=== PATIENT | female | born 1955 | race African-American/Black ===

== ENCOUNTER 2020-11-27 14:23 | Emergency (ER) | payer MEDICARE, MEDICAID, SELFPAY ==
[2020-11-27] VITALS (25 sets, daily range): BP systolic 152–204; BP diastolic 81–94; PULSE 72–89; RESP 15–18; TEMP 37.1; O2SAT 94–100
[2020-11-27 16:52] LABS: Basophils Percent Auto 0.4 % (0.2-1.2); Eosinophils Absolute Auto 0.1 K/mm3 (0-0.3); Eosinophils Percent Auto 0.8 % (0-4.4); Hematocrit 39.9 % (37.0-47.0); Hemoglobin 12.9 g/dL (12.0-15.0); Immature Granulocyte Absolute 0.04 K/mm3 (0.00-0.031); Immature Granulocyte Percent A 0.5 % (0-0.5); Lymphocytes Absolute Auto 1.69 K/mm3 (0.9-3.2); Lymphocytes Percent Auto 19.8 % (18.3-44.2); Mean Corpuscular HGB Conc 32.3 g/dl (32-36); Mean Corpuscular Volume 83.5 fl (80-100); Mean Platelet Volume 9.5 fl (7.4-10.4); Monocytes Absolute Auto 0.7 K/mm3 (0.1-0.6); Monocytes Percent Auto 8.1 % (2.6-8.5); Neutrophils Percent Auto 70.4 % (45.5-73.1); Platelet Count Result 363 k/mm3 (150-375); Red Blood Count 4.78 M/mm3 (4.2-5.4); Red Cell Distribution Width 16.9 % (11.5-14.5); White Blood Count 8.5 K/mm3 (4.5-10.0)
--- NOTE | 2020-11-27 17:07 | PC.NURSE ---
verbal order from hanna lea for regular diet for pt.
--- NOTE | 2020-11-27 17:08 | PC.NURSE ---
Dinner tray requested per provider order and pt request.
--- NOTE | 2020-11-27 17:21 | ED.GENADULT ---
HPI - General Adult General Chief complaint: Unspecified <Loraine Crawley MD - Last Filed: 11/30/20 08:27> Stated complaint: WEAKNESS <Loraine Crawley MD - Last Filed: 11/30/20 08:27> Time Seen by Provider: 11/27/20 15:26 <Loraine Crawley MD - Last Filed: 11/30/20 08:27> Source: patient <Loraine Crawley MD - Last Filed: 11/30/20 08:27> History of Present Illness HPI narrative: Patient is a 65 y/o female complaining of weakness. [facility] and she signed herself out today. She was going to go home, but she was not able to get off the stretcher when EMS brought her home. She has some chronic knee pain due to arthritis. She has no acute complaint. <Loraine Crawley MD - Last Filed: 11/30/20 08:27> Related Data Home medications: Home Medications Medication Instructions Recorded Confirmed aspirin 81 mg PO DAILY 11/28/20 11/28/20 atorvastatin 10 mg PO HS 11/28/20 11/28/20 baclofen 20 mg PO BID 11/28/20 11/28/20 hydrocodone-acetaminophen 1 tablet PO QID PRN 11/28/20 11/28/20 insulin asp prt-insulin aspart 45 unit SUBCUT QPM 11/28/20 11/28/20 [Novolog Mix 70-30 U-100 Insuln] insulin asp prt-insulin aspart 30 unit SUBCUT QAM 11/28/20 11/28/20 [Novolog Mix 70-30FlexPen U-100] lidocaine See Rx Instructions .ROUTE .COMPLEX 11/28/20 11/28/20 lisinopril 40 mg PO DAILY 11/28/20 11/28/20 loperamide [Imodium] See Rx Instructions .ROUTE 11/28/20 11/28/20 .COMPLEX PRN MDD 8 mg <Loraine Crawley MD - Last Filed: 11/30/20 08:27> Allergies/adverse reactions: Allergies Allergy/AdvReac Type Severity Reaction Status Date / Time broccoli Allergy Severe Hives Verified 11/28/20 13:55 chocolate flavor Allergy Severe Anaphylactic Verified 11/28/20 13:55 Shock shrimp Allergy Severe Hives Verified 11/28/20 13:55 Sulfa (Sulfonamide Allergy Severe Anaphylactic Verified 11/28/20 13:55 Antibiotics) Shock tetracycline Allergy Severe Nausea and Verified 11/28/20 13:55 Vomiting EGGS Allergy Severe Cramping Uncoded 11/28/20 13:55 of the Muscles <Loraine Crawley MD - Last Filed: 11/30/20 08:27> Review of Systems Constitutional: Constitutional: Denies chills, Denies fever(s), Denies headache(s) and Reports weakness <Loraine Crawley MD - Last Filed: 11/30/20 08:27> Eyes: Eyes: Denies blurry vision <Loraine Crawley MD - Last Filed: 11/30/20 08:27> ENT: Denies headache(s) and Denies neck pain <Loraine Crawley MD - Last Filed: 11/30/20 08:27> Cardiovascular: Cardiovascular: Denies chest pain and Denies dyspnea <Loraine Crawley MD - Last Filed: 11/30/20 08:27> Respiratory: Respiratory: Denies cough and Denies dyspnea <Loraine Crawley MD - Last Filed: 11/30/20 08:27> Gastrointestinal: Gastrointestinal: Denies abdominal pain, Denies diarrhea, Denies nausea and Denies vomiting <Loraine Crawley MD - Last Filed: 11/30/20 08:27> Genitourinary: Genitourinary: Denies hematuria and Denies dysuria <Loraine Crawley MD - Last Filed: 11/30/20 08:27> Musculoskeletal: Musculoskeletal: Denies back pain, Reports arthralgias (knee pain) and Denies neck pain <Loraine Crawley MD - Last Filed: 11/30/20 08:27> Neurologic: Denies headache(s) and Reports weakness <Loraine Crawley MD - Last Filed: 11/30/20 08:27> PMFSH Family History Family History: Family History Father Cerebrovascular accident Patient's father is Hypertension Family history of elevated blood lipids Family history of diabetes mellitus in first degree relative Family history of heart disease in male family member before age 55 Sibling Family history of malignant neoplasm of cervix Family history of malignant neoplasm of kidney Patient's sister is Patient's brother is Mother Patient's mother is , Onset Age: 88 <Loraine Crawley MD - Last Filed: 11/30/20 08:27> Social Histo
--- NOTE | 2020-11-27 17:30 | PC.NURSE ---
Care coordination contacted by bellows charger assembler for consult, awaiting their arrival. Dinner tray provided to pt.
[2020-11-27 17:41] LABS: Add Urine Microscopic? YES; Appearance Urine Clear (Clear); Bacteria Urine Trace /hpf; Bilirubin Urine Negative (Negative); Blood Urine Negative (Negative); Color Urine Yellow (Yellow); Glucose Urine UA Negative (Negative); Ketones Urine Negative (Negative); Leukocyte Esterase Ur Negative LEU/UL (Negative); Mucus Urine Rare /lpf; Nitrate Urine Negative (Negative); Protein Urine 2+ mg/dL (Negative); Specific Grav Ur 1.017 (1.001-1.035); Squamous Epithelial Cell Urine Few /hpf (Few); WBC Urine 0-3 /hpf
[2020-11-27 17:45] LABS: Alanine Aminotransferase 12 U/L (4-35); Albumin Level 3.8 g/dL (3.5-5.1); Alkaline Phosphatase 115 U/L (38-126); Anion Gap 5 mmol/L (8-16); Aspartate Amino Transferase 21 U/L (14-36); Bilirubin,Total 0.6 mg/dL (0.2-1.3); Blood Urea Nitrogen 13 mg/dL (7-17); Calcium 9.4 mg/dL (8.4-10.2); Carbon Dioxide 27 mmol/L (22-30); Chloride 106 mmol/L (98-107); Estimated CRCL calculation 92 ml/min; Estimated Glomerular Filt Rate > 60; Glucose 97 mg/dL (65-110); Potassium 4.4 mmol/L (3.4-5.0); Sodium 138 mmol/L (137-145)
--- NOTE | 2020-11-27 17:58 | PCCCNOTE ---
Clinicals faxed to [facility] where there is a bed available. Bernice will work on getting the insurance authorization.
[2020-11-27] MEDS: BELLADONNA ALK/PHENOB ELIX 10 ML, MAG HYDROX/ALUMINUM HYD/SIMETH 30 ML, LIDOCAINE HCL 2... PO (20:02)
[2020-11-27 22:52] LABS: Glucose Point of Care 159 mg/dl (65-105)
[2020-11-28 01:25] VITALS: BP 189/97; PULSE 80; RESP 20; O2SAT 100
[2020-11-28 05:27] VITALS: BP 190/92; PULSE 81; RESP 20; O2SAT 98
[2020-11-28 07:49] VITALS: BP 174/83; PULSE 88; RESP 18; O2SAT 99
--- NOTE | 2020-11-28 07:49 | PC.NURSE ---
Breakfast ordered and patients depend changed
--- NOTE | 2020-11-28 09:15 | PCCCNOTE ---
Spoke with Bernice admission coordinator at [phone] about authorization for SNF admission for [facility] and she states they are waiting to hear back from [facility]. She states it can take 24-48 hours to get response back. Bernice states when auth received the shelter can take pt at any time of day and they can take patients on the weekend.
[2020-11-28] MEDS: lisinopriL 20 MG TABLET 40 MG PO (09:28)
[2020-11-28 12:19] VITALS: BP 193/97; PULSE 82; RESP 18; TEMP 36.6; O2SAT 99
--- NOTE | 2020-11-28 13:16 | PCCCNOTE ---
Received call from [facility] this morning stating the pt's insurance [employer] terminates tomorrow on 11/29/2020. Care Coordination spoke to pt about insurance and she was not aware that it was terminating tomorrow. Bernice from [facility] spoke to pt about insurance. Pt was agreeable to go to [facility] today using her Medicaid. Bernice will help pt on Tuesday to check on insurance options. Pt was agreeable. Obtained list of medications from [facility] from which the pt left there yesterday. Medication list given to RN.
[2020-11-28 13:48] VITALS: BP 191/95; PULSE 87; RESP 19; TEMP 36.6; O2SAT 98
--- NOTE | 2020-11-28 15:50 | PC.NURSE ---
[facility] accepted return to [facility] ETA- 4:30pm Trip # [phone]
--- NOTE | 2020-11-28 17:28 | PC.NURSE ---
Dinner tray ordered. Patient updated with new ETA of ambulance.
--- NOTE | 2020-11-28 17:34 | PC.NURSE ---
[facility] update- ETA 8pm
[2020-11-28 19:00] VITALS: BP 189/89; PULSE 87; RESP 20; TEMP 36.8; O2SAT 97
== END 2020-11-28 19:00 ==
PROVIDERS: Emergency Provider Emergency Medicine
DX: R53.1 Weakness (principal); M17.10 Unilateral primary osteoarthritis, unspecified knee; Z79.82 Long term (current) use of aspirin; Z79.4 Long term (current) use of insulin; Z87.891 Personal history of nicotine dependence
CPT/HCPCS: 36415; 51701; 80053; 81001; 82948; 85025; 99283; A9270

== ENCOUNTER 2021-02-27 16:20 | Emergency (ER) | payer MEDICARE, MEDICAID, SELFPAY ==
[2021-02-27] VITALS (22 sets, daily range): BP systolic 153–183; BP diastolic 67–128; PULSE 79–107; RESP 8–21; TEMP 36.3–36.7; O2SAT 74–100
--- NOTE | ~2021-02-27 | CT_ITS ---
EXAMINATION: CT brain wo con DATE: 02/27/2021 17:21 INDICATION: Altered mental status. Confusion. TECHNIQUE: Computed tomography (CT) of the head was performed without intravenous contrast. The mA wa s adjusted according to patient size. Iterative reconstruction technique was employed. The dose-lengt h product was 605.33 mGy-cm. COMPARISON: None FINDINGS: There are scattered areas of low attenuation in the cerebral white matter and the bilateral thalami. There is no intracranial hemorrhage, acute infarction, or abnormal intracranial mass lesion . The ventricles are normal in size. The paranasal sinuses are clear. There are likely changes of lef t ocular lens replacement surgery. The mastoid air cells are normal. IMPRESSION: 1. Moderate nonspecific cerebral white matter disease and bilateral thalamic disease, which likely re presents chronic small vessel ischemic disease. Reviewed, dictated and finalized at location A. IMPRESSION: 1. Moderate nonspecific cerebral white matter disease and bilateral thalamic di sease, which likely represents chronic small vessel ischemic disease.
--- NOTE | ~2021-02-27 | XR_ITS ---
XR chest 2V 02/27/2021 17:29 Indication: Altered mental status. Low blood sugar. Procedure: 2 view chest Comparison: No prior studies for comparison. Findings: Heart size is normal. There is linear subsegmental atelectasis/scarring left midlung. There is a nodular density lateral to the left hilum which may represent prominent pulmonary vessel versus parenchymal nodule. No focal pneumonia, pleural effusion or pneumothorax. Impression: 1: Focal nodular density lateral to the left hilum. Correlation with CT recommended to exclude parenc hymal nodule. Reviewed, dictated and finalized at location A. Impression: 1: Focal nodular density lateral to the left hilum. Correlation with CT recomme nded to exclude parenchymal nodule.
[2021-02-27 16:27] LABS: Glucose Point of Care 52 mg/dl (65-105)
[2021-02-27] MEDS: DEXTROSE 50% 25 GM/50 ML SYRINGE IV PUSH (16:40)
--- NOTE | 2021-02-27 16:43 | ECG_ITS ---
Measurements Intervals [place] Rate: 83 P: 36 MN: 173 QRS: -23 QRSD: 105 T: 37 QT: 364 QTc: 429 Interpretive Statements SINUS RHYTHM FREQUENT ATRIAL PREMATURE COMPLEXES DELAYED PRECORDIAL R/S TRANSITION BASELINE ARTIFACT- I, II, III, AVR, AVL, AVF, V1-V6 ABNORMAL ECG Electronically Signed On 02-27-2021 17:40:01 CDT by Joel Aburto D.O.
[2021-02-27 16:54] LABS: Glucose Point of Care 133 mg/dl (65-105)
[2021-02-27 17:17] LABS: Basophils Percent Auto 0.2 % (0.2-1.2); Eosinophils Absolute Auto 0.1 K/mm3 (0-0.3); Eosinophils Percent Auto 1.7 % (0-4.4); Hemoglobin 12.6 g/dL (12.0-15.0); Immature Granulocyte Absolute 0.02 K/mm3 (0.00-0.031); Immature Granulocyte Percent A 0.3 % (0-0.5); Lymphocytes Absolute Auto 1.23 K/mm3 (0.9-3.2); Lymphocytes Percent Auto 19.2 % (18.3-44.2); Mean Corpuscular HGB Conc 32.3 g/dl (32-36); Mean Corpuscular Hemoglobin 28.1 pg (26-34); Mean Corpuscular Volume 87.1 fl (80-100); Mean Platelet Volume 9.5 fl (7.4-10.4); Monocytes Absolute Auto 0.5 K/mm3 (0.1-0.6); Monocytes Percent Auto 7.7 % (2.6-8.5); Neutrophils Absolute Auto 4.5 K/mm3 (1.3-6.7); Neutrophils Percent Auto 70.9 % (45.5-73.1); Platelet Count Result 298 k/mm3 (150-375); Red Blood Count 4.48 M/mm3 (4.2-5.4); Red Cell Distribution Width 16.6 % (11.5-14.5); White Blood Count 6.4 K/mm3 (4.5-10.0)
[2021-02-27 17:31] LABS: Alanine Aminotransferase 11 U/L (4-35); Albumin Level 3.6 g/dL (3.5-5.1); Alkaline Phosphatase 109 U/L (38-126); Anion Gap 9 mmol/L (8-16); Aspartate Amino Transferase 18 U/L (14-36); Bilirubin,Total 0.3 mg/dL (0.2-1.3); Blood Urea Nitrogen 21 mg/dL (7-17); Calcium 9.6 mg/dL (8.4-10.2); Carbon Dioxide 25 mmol/L (22-30); Chloride 107 mmol/L (98-107); Estimated CRCL calculation 69 ml/min; Estimated Glomerular Filt Rate > 60; Glucose 133 mg/dL (65-110); Potassium 4.1 mmol/L (3.4-5.0); Sodium 141 mmol/L (137-145)
[2021-02-27] MEDS: SODIUM CHLORIDE 0.9% IV 1,000 ML 999 ML IV CONT (17:47)
[2021-02-27 18:05] LABS: Ammonia < 9 umol/L (9-30)
[2021-02-27 18:11] LABS: Lactic Acid Reflex 1.4 mmol/L (0.7-2.1)
[2021-02-27 18:15] LABS: Glucose Point of Care 88 mg/dl (65-105)
[2021-02-27 18:24] LABS: Add Urine Microscopic? YES; Appearance Urine Clear (Clear); Bilirubin Urine Negative (Negative); Blood Urine Negative (Negative); Color Urine Straw (Yellow); Glucose Urine UA Negative (Negative); Ketones Urine Negative (Negative); Leukocyte Esterase Ur Negative LEU/UL (Negative); Nitrate Urine Negative (Negative); Protein Urine 1+ mg/dL (Negative); Specific Grav Ur 1.012 (1.001-1.035); Squamous Epithelial Cell Urine Rare /hpf (Few); Urobilinogen Urine Negative mg/dL (<2.0); WBC Urine 0-3 /hpf
[2021-02-27] MEDS: HYDROmorphone HCL INJ (*CRX) 1 MG/ML SYR IV PUSH (18:40)
--- NOTE | 2021-02-27 18:42 | ED.AMS ---
HPI - Altered Mental Status General Chief Complaint: Altered Mental Status Stated Complaint: AMS Time Seen by Provider: 02/27/21 16:34 Source: patient, RN notes reviewed and old records reviewed History of Present Illness HPI narrative: Patient was brought in for altered mental status. Nursing facility reported patient appeared more confused but is unsure of when she was last normal. They also reports she has been recently diagnosed with a urinary tract infection 2 days ago and was just started on antibiotics. This facility has not noted any fevers or changes in appetite. They report overall she feels well she reports she has chronic bilateral leg pain right worse than left but denies any abdominal pain, nausea, vomiting, dizziness, chest pain, shortness of breath. She denies any focal weakness or numbness Related Data Home Medications Medication Instructions Recorded Confirmed aspirin 81 mg PO DAILY 11/28/20 11/28/20 atorvastatin 10 mg PO HS 11/28/20 11/28/20 baclofen 20 mg PO BID 11/28/20 11/28/20 hydrocodone-acetaminophen 1 tablet PO QID PRN 11/28/20 11/28/20 insulin asp prt-insulin aspart 45 unit SUBCUT QPM 11/28/20 11/28/20 [Novolog Mix 70-30 U-100 Insuln] insulin asp prt-insulin aspart 30 unit SUBCUT QAM 11/28/20 11/28/20 [Novolog Mix 70-30FlexPen U-100] lidocaine See Rx Instructions .ROUTE .COMPLEX 11/28/20 11/28/20 lisinopril 40 mg PO DAILY 11/28/20 11/28/20 loperamide [Imodium] See Rx Instructions .ROUTE 11/28/20 11/28/20 .COMPLEX PRN MDD 8 mg Allergies Allergy/AdvReac Type Severity Reaction Status Date / Time broccoli Allergy Severe Hives Verified 02/27/21 16:38 chocolate flavor Allergy Severe Anaphylactic Verified 02/27/21 16:38 Shock shrimp Allergy Severe Hives Verified 02/27/21 16:38 Sulfa (Sulfonamide Allergy Severe Anaphylactic Verified 02/27/21 16:38 Antibiotics) Shock tetracycline Allergy Severe Nausea and Verified 02/27/21 16:38 Vomiting EGGS Allergy Severe Cramping Uncoded 02/27/21 16:38 of the Muscles Review of Systems Review of Systems: CONSTITUTIONAL: Denies fever, chills, or sweats. EYES: Denies visual changes, redness, or discharge. ENT: Denies rhinorrhea, congestion, sore throat, or otalgia. CARDIOVASCULAR: Denies chest pain, palpitations, or edema. RESPIRATORY: Denies cough or dyspnea. GASTROINTESTINAL: Denies abdominal pain, nausea, vomiting, or diarrhea. GENITOURINARY: Denies dysuria or hematuria. SKIN: Denies rash or itching. MUSCULOSKELETAL: Denies back pain, joint pain, or myalgia. NEUROLOGIC: Denies headache, numbness, dizziness, or weakness. PSYCHIATRIC: Denies anxiety or depression. All systems reviewed & are unremarkable except as noted in HPI and below PMFSH Family History Family History Father Cerebrovascular accident Patient's father is Hypertension Family history of elevated blood lipids Family history of diabetes mellitus in first degree relative Family history of heart disease in male family member before age 55 Sibling Family history of malignant neoplasm of cervix Family history of malignant neoplasm of kidney Patient's sister is Patient's brother is Mother Patient's mother is , Onset Age: 88 Social History Social History Smoking status: Former smoker Second hand tobacco smoke exposure: No Smoking end date: 05/02/15 Alcohol intake: never Gender identity (if verbalized by the patient): Female Exam Narrative: GENERAL: Well-appearing, well-nourished, and in no acute distress. HEAD: Normocephalic, atraumatic. EYES: PERRLA and EOMI. ENT: Nares clear, no rhinorrhea or epistaxis. Mucous membranes moist. NECK: Supple. No masses. No JVD CHEST: Clear to auscultation. No respiratory distress. No wheezes rales or rhonchi HEART: Regular rate and rhythm. No
[2021-02-27 18:51] LABS: Amphetamine Screen Urine Negative (Negative); Barbiturate Screen Urine Negative (Negative); Benzodiazepines Screen Urine Negative (Negative); Cannabinoid Screen Urine Negative (Negative); Cocaine Screen Urine Negative (Negative); Methadone Screen Urine Negative (Negative); Opiate Screen Urine Positive (Negative); Phencyclidine Screen Urine Negative (Negative)
--- NOTE | 2021-02-27 19:01 | PC.NURSE ---
[facility] accepted return to [facility] ETA 1929 Trip #[phone]
[2021-02-27 19:19] LABS: Glucose Point of Care 61 mg/dl (65-105)
--- NOTE | 2021-02-27 19:21 | PC.NURSE ---
Pt blood sugar 61. MD notified. Pt provided with turkey sandwich and apple juice.
[2021-02-27 19:43] LABS: Glucose Point of Care 78 mg/dl (65-105)
--- NOTE | 2021-02-27 19:50 | PC.NURSE ---
IV removed and report to [facility] personnel. pt back to nursing facility.
== END 2021-02-27 19:59 ==
PROVIDERS: Emergency Provider Emergency Medicine
DX: E11.649 Type 2 diabetes mellitus with hypoglycemia without coma (principal); R41.82 Altered mental status, unspecified; N39.0 Urinary tract infection, site not specified; E78.5 Hyperlipidemia, unspecified; I10 Essential (primary) hypertension; E66.01 Morbid (severe) obesity due to excess calories; Z68.42 Body mass index [BMI] 45.0-49.9, adult; Z87.891 Personal history of nicotine dependence; Z79.4 Long term (current) use of insulin; Z79.82 Long term (current) use of aspirin; R90.82 White matter disease, unspecified; R91.8 Other nonspecific abnormal finding of lung field; I49.1 Atrial premature depolarization; R94.31 Abnormal electrocardiogram [ECG] [EKG]; Z79.899 Other long term (current) drug therapy
CPT/HCPCS: 36415; 51701; 70450; 71046; 80053; 80307; 81001; 82140; 82948; 83605; 85025; 87040; 93005; 96361; 96374; 96375; 99284; J1170; J7030

== ENCOUNTER 2022-03-20 19:48 | Emergency (ER) | payer OTHER, SELFPAY ==
[2022-03-20] VITALS (8 sets, daily range): BP systolic 150–156; BP diastolic 75–85; PULSE 89–101; RESP 13–18; TEMP 36.9; O2SAT 94–100
--- NOTE | ~2022-03-20 | CT_ITS ---
EXAMINATION: CT abdomen pelvis w con DATE: 03/20/2022 21:56 INDICATION: Abdominal pain TECHNIQUE: Computed tomography (CT) of the abdomen and pelvis was performed with 100 mL Omnipaque-350 intravenous contrast. Automated exposure control and iterative reconstruction technique were employe d. The dose-length product was 1565.32 mGy-cm. COMPARISON: CT dated 09/10/2014 FINDINGS: Lung bases are clear. Heart size is normal. No pericardial or pleural effusion. There several large g eographic regions and both the left and right hepatic lobes with irregular margins and with markedly decreased attenuation of less than fluid density consistent with focal severe hepatic steatosis. Thes e are new since the prior study. Cholecystectomy clips the gallbladder fossa. A few tiny splenic calc ific lesions consistent with old granulomatous disease. Pancreas and right adrenal gland are normal. No interval change in a 1.5 cm left adrenal adenoma with characteristic low attenuation on the prior noncontrast study. Kidneys enhance symmetrically with no hydronephrosis. 5 mm nonobstructing stone at a lower pole calyx of the left kidney. Large amount of stool throughout the colon most prominent at the rectum where there is a bolster yves uring 8.2 cm diameter consistent with constipation/fecal impaction and. There is mild associated rect al wall thickening likely related to stercoral colitis. There are few scattered clonic diverticula wi thout adjacent inflammatory change to suggest diverticulitis. Small bowel and appendix are normal. Bl adder is normal. The uterus is not identified and has likely been surgically resected. Infraumbilical midline abdominal/pelvic wall surgical scar. No free intraperitoneal gas or fluid. No pathologically enlarged abdominal/pelvic lymphadenopathy. Mild to moderate lumbar and lower thoracic spondylosis. M ild to moderate bilateral hip osteoarthritis. IMPRESSION: 1. Large amount of colonic stool with a 0.2 cm ball of stool at rectum consistent with constipation a nd fecal impaction. Likely associated stercoral colitis with mild wall thickening of the surrounding rectum. 2. Unusual pattern of scattered focal severe hepatic steatosis which is of indeterminate etiology or significance. Reviewed, dictated and finalized at location A. [employer] IMPRESSION: 1. Large amount of colonic stool with a 0.2 cm ball of stool at rectum consiste nt with constipation and fecal impaction. Likely associated stercoral colitis w ith mild wall thickening of the surrounding rectum. 2. Unusual pattern of scattered focal severe hepatic steatosis which is of inde terminate etiology or significance.
--- NOTE | 2022-03-20 20:24 | ED.GENADULT ---
HPI - General Adult General Chief complaint: Abdominal Pain Stated complaint: abd pain Time Seen by Provider: 03/20/22 20:08 History of Present Illness HPI narrative: -year-old female presents emerged department with chief complaint of abdominal pain. Patient states that for the last couple days has been having discomfort in her abdomen. Patient reports that no vomiting reports that the pain is sharp reports that she has prior history of a cholecystectomy and 2 hernia repairs including mesh placed in her abdomen. The patient reports the surgeries were done many years ago with the last one being done in [facility] the patient is a resident of a local nursing facility and they did a outpatient x-ray of her abdomen which showed a possible ileus Related Data Home Medications Medication Instructions Recorded Confirmed aspirin 81 mg chewable tablet 81 mg PO DAILY 11/28/20 11/28/20 atorvastatin 10 mg tablet 10 mg PO HS 11/28/20 11/28/20 baclofen 20 mg tablet 20 mg PO BID 11/28/20 11/28/20 hydrocodone 7.5 mg-acetaminophen 1 tablet PO QID PRN Pain 11/28/20 11/28/20 325 mg tablet insulin aspar prot-insulin aspart 30 unit subcut QAM 11/28/20 11/28/20 100 unit/mL (70-30) subcutaneous pen (Novolog Mix 70-30FlexPen U-100) insulin aspar prt-insulin aspart 45 unit subcut QPM 11/28/20 11/28/20 100 unit/mL (70-30) subcutaneous soln (Novolog Mix 70-30 U-100 Insuln) lidocaine 5 % topical patch See Rx Instructions .Route .COMPLEX 11/28/20 11/28/20 lisinopril 40 mg tablet 40 mg PO DAILY 11/28/20 11/28/20 loperamide 2 mg capsule See Rx Instructions .Route 11/28/20 11/28/20 .COMPLEX PRN Diarrhea Allergies Allergy/AdvReac Type Severity Reaction Status Date / Time broccoli Allergy Severe Hives Verified 03/20/22 20:27 chocolate flavor Allergy Severe Anaphylactic Verified 03/20/22 20:27 Shock shrimp Allergy Severe Hives Verified 03/20/22 20:27 Sulfa (Sulfonamide Allergy Severe Anaphylactic Verified 03/20/22 20:27 Antibiotics) Shock tetracycline Allergy Severe Nausea and Verified 03/20/22 20:27 Vomiting EGGS Allergy Severe Cramping Uncoded 02/27/21 16:38 of the Muscles Review of Systems Review of Systems: A 10 system review of systems was completed on the patient and is negative except for what is stated in the HPI. Nursing and ancillary documentation was reviewed. PMFSH Family History Family History Father Cerebrovascular accident Patient's father is Hypertension Family history of elevated blood lipids Family history of diabetes mellitus in first degree relative Family history of heart disease in male family member before age 55 Sibling Family history of malignant neoplasm of cervix Family history of malignant neoplasm of kidney Patient's sister is Patient's brother is Mother Patient's mother is , Onset Age: 88 Social History Social History Smoking status: Former smoker Second hand tobacco smoke exposure: No Smoking end date: 05/02/15 Alcohol intake: never Gender identity (if verbalized by the patient): Female Exam Narrative: GENERAL: Well-appearing, well-nourished, and in no acute distress. Morbidly obese HEAD: Normocephalic, atraumatic. EYES: PERRLA and EOMI. ENT: Nares clear, no rhinorrhea or epistaxis. Mucous membranes moist. NECK: Supple. CHEST: Clear to auscultation. No respiratory distress. HEART: Regular rate and rhythm. No murmur heard. Normal peripheral pulses. ABDOMEN: Soft, diffusely tender to palpation, nondistended, normal active bowel sounds. EXTREMITIES: Normal range of motion. No edema. SKIN: Warm, dry, chronic stasis to the lower extremities. NEURO: No focal deficits. Alert and oriented x3. PSYCH: Normal mood and affect. Course Vital Signs Vital signs:
[2022-03-20] MEDS: MORPHINE SULFATE (*CRX) 4 MG/ML INJ IV PUSH (20:45)
[2022-03-20] MEDS: ONDANSETRON INJ 4 MG/2 ML VIAL IV PUSH (20:45)
[2022-03-20] MEDS: SODIUM CHLORIDE 0.9% IV 1,000 ML 999 ML IV CONT (20:46)
[2022-03-20 20:50] LABS: Basophils Percent Auto 0.4 % (0.2-1.2); Eosinophils Absolute Auto 0.3 K/mm3 (0-0.3); Eosinophils Percent Auto 2.9 % (0-4.4); Hematocrit 37.4 % (37.0-47.0); Hemoglobin 11.8 g/dL (12.0-15.0); Immature Granulocyte Absolute 0.04 K/mm3 (0.00-0.031); Immature Granulocyte Percent A 0.4 % (0-0.5); Lymphocytes Absolute Auto 2.72 K/mm3 (0.9-3.2); Lymphocytes Percent Auto 27.4 % (18.3-44.2); Mean Corpuscular HGB Conc 31.6 g/dl (32-36); Mean Corpuscular Hemoglobin 27.4 pg (26-34); Mean Platelet Volume 10.2 fl (7.4-10.4); Monocytes Absolute Auto 0.8 K/mm3 (0.1-0.6); Neutrophils Percent Auto 60.9 % (45.5-73.1); Platelet Count Result 368 k/mm3 (150-375); Red Cell Distribution Width 18.1 % (11.5-14.5); White Blood Count 9.9 K/mm3 (4.5-10.0)
[2022-03-20 21:30] LABS: Alanine Aminotransferase 18 U/L (6-35); Albumin Level 3.7 g/dL (3.5-5.1); Alkaline Phosphatase 146 U/L (38-126); Anion Gap 7 mmol/L (8-16); Aspartate Amino Transferase 24 U/L (14-36); Bilirubin,Total 0.2 mg/dL (0.2-1.3); Blood Urea Nitrogen 21 mg/dL (7-17); Calcium 9.1 mg/dL (8.4-10.2); Carbon Dioxide 31 mmol/L (22-30); Chloride 98 mmol/L (98-107); Estimated CRCL calculation 66 ml/min; Estimated Glomerular Filt Rate > 60; Glucose 221 mg/dL (65-110); Lipase 50 U/L (23-300); Potassium 4.5 mmol/L (3.4-5.0); Sodium 136 mmol/L (137-145)
[2022-03-20 21:34] LABS: Appearance Urine Clear (Clear); Bilirubin Urine Negative (Negative); Blood Urine Negative (Negative); Color Urine Yellow (Yellow); Glucose Urine UA Negative (Negative); Ketones Urine Negative (Negative); Leukocyte Esterase Ur Negative LEU/UL (Negative); Nitrate Urine Negative (Negative); Protein Urine Negative (Negative); Urobilinogen Urine 0.2 mg/dL (<2.0)
[2022-03-20 21:37] LABS: Bacteria Urine Trace /hpf; Mucus Urine Rare /lpf; RBC Urine 0-2 /hpf (0-2); Squamous Epithelial Cell Urine Occasional /hpf (Few); WBC Urine 0-3 /hpf
[2022-03-20 21:38] LABS: Add Urine Microscopic? NO
[2022-03-20 21:41] LABS: Magnesium 1.8 mg/dL (1.6-2.3)
--- NOTE | 2022-03-20 22:46 | PC.NURSE ---
Spoke with Azam at [facility]. Updated him on pt and will update him again when dispo is decided.
[2022-03-21 00:02] VITALS: BP 159/87; PULSE 93; RESP 15; O2SAT 93
[2022-03-21] MEDS: polyethylene glycoL 3350 17 GM POWD.PACK PO (00:10)
[2022-03-21 01:02] VITALS: BP 146/74; PULSE 93; RESP 11; O2SAT 94
--- NOTE | 2022-03-21 02:47 | PC.NURSE ---
called [facility] to request transport. ETA [phone] [facility], [facility] and [facility] not available
[2022-03-21 03:01] VITALS: BP 161/77; PULSE 99; RESP 15
--- NOTE | 2022-03-21 03:03 | PC.NURSE ---
302 Called [facility] in [place], updated on Pt dispo, and gave ETA of Ambulance arrival.
[2022-03-21 03:31] VITALS: BP 148/63; PULSE 101; RESP 18
[2022-03-21 04:01] VITALS: BP 186/91; PULSE 111; RESP 15
--- NOTE | 2022-03-21 04:27 | PC.NURSE ---
[facility] called with an ETA update of [id number]
[2022-03-21 04:31] VITALS: BP 148/71; PULSE 102; RESP 13
--- NOTE | 2022-03-21 06:41 | PC.NURSE ---
called [facility] for ETA update. ETA just after 7
== END 2022-03-21 07:28 ==
PROVIDERS: Emergency Provider Emergency Medicine
DX: K59.00 Constipation, unspecified (principal); E11.9 Type 2 diabetes mellitus without complications; Z87.891 Personal history of nicotine dependence; Z79.4 Long term (current) use of insulin; Z79.82 Long term (current) use of aspirin; K76.0 Fatty (change of) liver, not elsewhere classified
CPT/HCPCS: 36415; 74177; 80053; 81003; 83690; 83735; 85025; 96361; 96374; 96375; 99284; J2270; J2405; J7030; Q9967

== ENCOUNTER 2022-04-22 08:52 | Emergency (ER) | payer OTHER, SELFPAY ==
[2022-04-22] VITALS (7 sets, daily range): BP systolic 174–198; BP diastolic 76–102; PULSE 100–116; RESP 14–20; TEMP 36.3; O2SAT 95–100
--- NOTE | ~2022-04-22 | CT_ITS ---
EXAMINATION: CT abdomen pelvis w con DATE: 04/22/2022 10:15 INDICATION: Left lower quadrant tenderness, nausea, vomiting and diarrhea TECHNIQUE: Computed tomography (CT) of the abdomen and pelvis was performed with 100 mL Omnipaque-350 intravenous contrast. Automated exposure control and iterative reconstruction technique were employe d. The dose-length product was 1453.33 mGy-cm. COMPARISON: 03/20/2022 and 09/10/2014 FINDINGS: Minimal discoid atelectasis at the lingula. Calcified left lower lobe nodule and a few small splenic calcific lesions consistent with old granulomatous disease. Heart size is normal. No pericardial or p leural effusion. Again seen is a heterogeneous pattern of prominent low density hepatic steatosis. Ch olecystectomy clips at gallbladder fossa. Pancreas, right adrenal gland and right kidney are normal. Unchanged 1.5 cm left adrenal adenoma with characteristic low attenuation on earlier noncontrast CT p erformed on 09/10/2014. 6 mm stone at the lower pole of the left kidney. 5 mm low-attenuation cyst at the lower pole of the left kidney. Bladder is normal. There are few scattered clonic diverticula with out adjacent inflammatory change to suggest diverticulitis. Moderate amount of colonic stool with per sistent large ball of stool measuring 8.4 cm diameter at the rectum. Unchanged mild perirectal strand ing consistent with stercoral colitis. Small bowel and appendix are normal. No free intraperitoneal g as or fluid. No pathologically enlarged abdominal or pelvic lymphadenopathy. The uterus is not identi fied and has likely been surgically resected. Infraumbilical midline abdominal surgical scar. Mild to moderate degenerative skeletal changes in the spine and both hips. IMPRESSION: 1. Moderate amount of colonic stool with 0.4 similar ball of stool at rectum and perirectal inflammat ory strain consistent with likely fecal impaction and associated stercoral colitis. 2. Unchanged heterogeneous pattern of focally severe diffuse hepatic steatosis. Reviewed, dictated and finalized at location [facility] IMPRESSION: 1. Moderate amount of colonic stool with 0.4 similar ball of stool at rectum an d perirectal inflammatory strain consistent with likely fecal impaction and ass ociated stercoral colitis. 2. Unchanged heterogeneous pattern of focally severe diffuse hepatic steatosis.
[2022-04-22 09:16] LABS: Basophils Percent Auto 0.2 % (0.2-1.2); Eosinophils Absolute Auto 0.1 K/mm3 (0-0.3); Eosinophils Percent Auto 0.5 % (0-4.4); Hematocrit 36.9 % (37.0-47.0); Hemoglobin 11.7 g/dL (12.0-15.0); Immature Granulocyte Absolute 0.16 K/mm3 (0.00-0.031); Immature Granulocyte Percent A 1.4 % (0-0.5); Lymphocytes Absolute Auto 1.13 K/mm3 (0.9-3.2); Lymphocytes Percent Auto 10.1 % (18.3-44.2); Mean Corpuscular HGB Conc 31.7 g/dl (32-36); Mean Corpuscular Hemoglobin 27.1 pg (26-34); Mean Corpuscular Volume 85.4 fl (80-100); Mean Platelet Volume 9.8 fl (7.4-10.4); Monocytes Absolute Auto 0.6 K/mm3 (0.1-0.6); Monocytes Percent Auto 5.5 % (2.6-8.5); Neutrophils Absolute Auto 9.2 K/mm3 (1.3-6.7); Neutrophils Percent Auto 82.3 % (45.5-73.1); Nucleated Red Blood Cells Perc 0.2 % (0.0-0.2); Platelet Count Result 328 k/mm3 (150-375); Red Blood Count 4.32 M/mm3 (4.2-5.4); Red Cell Distribution Width 17.4 % (11.5-14.5); White Blood Count 11.2 K/mm3 (4.5-10.0)
--- NOTE | 2022-04-22 09:21 | ED.NAVMDI ---
HPI - Nausea/Vomiting/Diarrhea General Chief complaint: Nausea/Vomiting/Diarrhea Stated complaint: N/V SINCE 0400 Time Seen by Provider: 04/22/22 08:58 Source: patient and old records reviewed Mode of arrival: EMS Limitations: no limitations History of Present Illness HPI Narrative: Patient is a 66-year-old female who presents the ED via EMS with report of N/V. Patient is a resident of [facility]. She reports she developed lower abdominal cramping around 1:30 AM this morning. She then developed nausea and vomiting around 4 AM. She reported having 4 episodes of emesis, unable to keep anything down, which prompted her presentation. She states she feels better currently. Denies any further nausea or abdominal pain currently. She has had a cough and diarrhea recently, last bowel movement on Tuesday. Denies any rectal bleeding. Denies urinary symptoms. Denies fever. Related Data Home Medications Medication Instructions Recorded Confirmed aspirin 81 mg chewable tablet 81 mg PO DAILY 11/28/20 11/28/20 atorvastatin 10 mg tablet 10 mg PO HS 11/28/20 11/28/20 baclofen 20 mg tablet 20 mg PO BID 11/28/20 11/28/20 hydrocodone 7.5 mg-acetaminophen 1 tablet PO QID PRN Pain 11/28/20 11/28/20 325 mg tablet insulin aspar prot-insulin aspart 30 unit subcut QAM 11/28/20 11/28/20 100 unit/mL (70-30) subcutaneous pen (Novolog Mix 70-30FlexPen U-100) insulin aspar prt-insulin aspart 45 unit subcut QPM 11/28/20 11/28/20 100 unit/mL (70-30) subcutaneous soln (Novolog Mix 70-30 U-100 Insuln) lidocaine 5 % topical patch See Rx Instructions .Route .COMPLEX 11/28/20 11/28/20 lisinopril 40 mg tablet 40 mg PO DAILY 11/28/20 11/28/20 loperamide 2 mg capsule See Rx Instructions .Route 11/28/20 11/28/20 .COMPLEX PRN Diarrhea Allergies Allergy/AdvReac Type Severity Reaction Status Date / Time broccoli Allergy Severe Hives Verified 04/22/22 09:13 chocolate flavor Allergy Severe Anaphylactic Verified 04/22/22 09:13 Shock shrimp Allergy Severe Hives Verified 04/22/22 09:13 Sulfa (Sulfonamide Allergy Severe Anaphylactic Verified 04/22/22 09:13 Antibiotics) Shock tetracycline AdvReac Unknown Nausea and Verified 04/22/22 09:13 Vomiting corn AdvReac Gastrointestinal Verified 04/22/22 09:13 Upset EGGS AdvReac Unknown Cramping Uncoded 04/22/22 09:13 of the Muscles Review of Systems Review of Systems: CONSTITUTIONAL: Denies fever, chills, or sweats. CARDIOVASCULAR: Denies chest pain. RESPIRATORY: Reports cough. Denies dyspnea. GASTROINTESTINAL: Reports lower abdominal pain, nausea, vomiting, and diarrhea. Denies rectal bleeding. GENITOURINARY: Denies dysuria or hematuria. All systems reviewed & are unremarkable except as noted in HPI and below PMFSH Past Medical History Medical History Essential (primary) hypertension Generalized osteoarthritis Morbid obesity Pure hypercholesterolemia Type 2 diabetes mellitus Surgical History Surgical History H/O: hysterectomy Family History Family History Father Cerebrovascular accident Patient's father is Hypertension Family history of elevated blood lipids Family history of diabetes mellitus in first degree relative Family history of heart disease in male family member before age 55 Sibling Family history of malignant neoplasm of cervix Family history of malignant neoplasm of kidney Patient's sister is Patient's brother is Mother Patient's mother is , Onset Age: 88 Social History Social History (Updated 04/22/22 @ 09:47 by Lorie Nazario PA-C) Smoking status: Former smoker Second hand tobacco smoke exposure: No Smoking end date: 05/02/15 Alcohol intake: never Living arrange
[2022-04-22 09:26] LABS: Alanine Aminotransferase 30 U/L (6-35); Albumin Level 4.1 g/dL (3.5-5.1); Alkaline Phosphatase 203 U/L (38-126); Anion Gap 9 mmol/L (8-16); Aspartate Amino Transferase 59 U/L (14-36); Bilirubin,Total 0.4 mg/dL (0.2-1.3); Blood Urea Nitrogen 13 mg/dL (7-17); Carbon Dioxide 28 mmol/L (22-30); Chloride 98 mmol/L (98-107); Estimated CRCL calculation 83 ml/min; Estimated Glomerular Filt Rate > 60; Glucose 243 mg/dL (65-110); Lipase 98 U/L (23-300); Potassium 4.3 mmol/L (3.4-5.0); Sodium 135 mmol/L (137-145)
[2022-04-22] MEDS: SODIUM CHLORIDE 0.9% IV 1,000 ML 999 ML IV CONT ×2 (10:20→12:51)
[2022-04-22 10:37] LABS: Influenza A QL RT-PCR Negative (Negative); Influenza B QL RT-PCR Negative (Negative); SARS-CoV-2 RNA PCR Negative
[2022-04-22 11:04] LABS: Add Urine Microscopic? YES; Appearance Urine Clear (Clear); Bilirubin Urine Negative (Negative); Blood Urine Trace-Intact (Negative); Color Urine Light Yellow (Yellow); Glucose Urine UA 1+ mg/dL (Negative); Ketones Urine Trace mg/dL (Negative); Leukocyte Esterase Ur Negative LEU/UL (Negative); Nitrate Urine Negative (Negative); Protein Urine 1+ mg/dL (Negative); Specific Grav Ur 1.015 (1.001-1.035); Urobilinogen Urine 0.2 mg/dL (<2.0)
[2022-04-22 11:20] LABS: WBC Urine 0-3 /hpf
[2022-04-22] MEDS: hydroCHLOROthiazide 25 MG TABLET PO (13:24)
[2022-04-22] MEDS: cloNIDine HCL 0.2 MG TABLET PO (13:24)
[2022-04-22] MEDS: BISACODYL 5 MG TABLET EC PO (14:54)
[2022-04-22] MEDS: polyethylene glycoL 3350 17 GM POWD.PACK PO (14:54)
== END 2022-04-22 18:25 ==
PROVIDERS: Emergency Medicine; Emergency Provider Physician Assistant
DX: K52.89 Other specified noninfective gastroenteritis and colitis (principal); K59.00 Constipation, unspecified; Z20.822 Contact with and (suspected) exposure to COVID-19; I10 Essential (primary) hypertension; E11.9 Type 2 diabetes mellitus without complications; E78.00 Pure hypercholesterolemia, unspecified; E66.01 Morbid (severe) obesity due to excess calories; Z68.43 Body mass index [BMI] 50.0-59.9, adult; M19.90 Unspecified osteoarthritis, unspecified site; Z90.710 Acquired absence of both cervix and uterus; Z87.891 Personal history of nicotine dependence; Z79.82 Long term (current) use of aspirin; Z79.4 Long term (current) use of insulin; K76.0 Fatty (change of) liver, not elsewhere classified
CPT/HCPCS: 36415; 51701; 74177; 80053; 81001; 83690; 85025; 87636; 96361; 96365; 99284; A9270; J0131; J7030; Q9967

== ENCOUNTER 2022-08-31 21:41 | Emergency (ER) | payer OTHER, SELFPAY ==
--- NOTE | ~2022-08-31 | CT_ITS ---
CT of the Abdomen and Pelvis: Indication: Abdominal pain Technique: 2.5 mm axial scans were obtained through the abdomen and pelvis following intravenous adm inistration of 100 cc of Omnipaque 350. Dose reduction technique was used on this scan by utilizing a utomated exposure control and iterative reconstruction technique. The dose-length product (DLP) was 1 401.90 mGy-cm. COMPARISON: 04/22/2022 Findings: Scans through the lung bases are unremarkable. There are several scattered focal, irregular areas of hypodensity in the liver, which are overall pro bably decreased in extent from prior exam. The spleen, pancreas, gallbladder, right adrenal gland, an d right kidney are within normal limits. 6 mm nonobstructing left lower pole renal stone present. Sta ble left adrenal nodule. No evidence of aortic aneurysm. No lymphadenopathy. Large amount of stool is present in the large bowel, especially the rectum, consistent with fecal imp action and constipation. No bowel obstruction evident otherwise. No abscess or free air. Images through the pelvis were performed. Urinary bladder unremarkable. No ascites. Impression: Findings consistent with fecal impaction and constipation. Irregular hypodense areas in the liver, overall decreased in extent from prior exam. Findings could reflect focal irregular areas of fatty infiltration. Left nephrolithiasis. Left adrenal nodule, stable dating back to 2014, therefore most likely benign. Reviewed, dictated and finalized at [facility]. Impression: Findings consistent with fecal impaction and constipation. Irregular hypodense areas in the liver, overall decreased in extent from prior exam. Findings could reflect focal irregular areas of fatty infiltration. Left nephrolithiasis. Left adrenal nodule, stable dating back to 2014, therefore most likely benign.
[2022-08-31 21:38] VITALS: BP 133/62; PULSE 89; RESP 18; TEMP 36.6; O2SAT 99
[2022-08-31 21:54] VITALS: PULSE 73; RESP 18
[2022-08-31] MEDS: SODIUM CHLORIDE 0.9% IV 2,000 ML 999 ML IV CONT (22:51)
[2022-08-31 22:53] LABS: Basophils Percent Auto 0.3 % (0.2-1.2); Eosinophils Absolute Auto 0.2 K/mm3 (0-0.3); Eosinophils Percent Auto 1.9 % (0-4.4); Hematocrit 39.2 % (37.0-47.0); Hemoglobin 12.3 g/dL (12.0-15.0); Immature Granulocyte Absolute 0.06 K/mm3 (0.00-0.031); Immature Granulocyte Percent A 0.5 % (0-0.5); Lymphocytes Percent Auto 26.6 % (18.3-44.2); Mean Corpuscular HGB Conc 31.4 g/dl (32-36); Mean Corpuscular Hemoglobin 26.7 pg (26-34); Mean Corpuscular Volume 85.2 fl (80-100); Mean Platelet Volume 9.6 fl (7.4-10.4); Monocytes Absolute Auto 0.9 K/mm3 (0.1-0.6); Monocytes Percent Auto 7.4 % (2.6-8.5); Neutrophils Absolute Auto 7.8 K/mm3 (1.3-6.7); Neutrophils Percent Auto 63.3 % (45.5-73.1); Nucleated Red Blood Cells Perc 0.2 % (0.0-0.2); Platelet Count Result 439 k/mm3 (150-375); Red Cell Distribution Width 17.2 % (11.5-14.5); White Blood Count 12.4 K/mm3 (4.5-10.0)
[2022-08-31 23:10] LABS: Alanine Aminotransferase 33 U/L (6-35); Alkaline Phosphatase 195 U/L (38-126); Anion Gap 6 mmol/L (8-16); Aspartate Amino Transferase 34 U/L (14-36); Bilirubin,Total 0.4 mg/dL (0.2-1.3); Blood Urea Nitrogen 22 mg/dL (7-17); Calcium 9.6 mg/dL (8.4-10.2); Carbon Dioxide 34 mmol/L (22-30); Chloride 94 mmol/L (98-107); Estimated CRCL calculation 46 ml/min; Estimated Glomerular Filt Rate 49; Glucose 219 mg/dL (65-110); Lipase 78 U/L (23-300); Potassium 4.3 mmol/L (3.4-5.0); Sodium 134 mmol/L (137-145)
[2022-09-01] MEDS: BISACODYL 10 MG SUPPOSITORY RECTAL (00:59)
--- NOTE | 2022-09-01 01:33 | ED.GENADULT ---
HPI - General Adult General Chief complaint: Abdominal Pain Stated complaint: ABD PAIN/POSSIBLE ILEUS History of Present Illness HPI narrative: This 67-year-old female with a history of chronic constipation Presenting with abdominal pain x1 month. She says the cramping pain that is diffuse throughout her abdomen, 8 out 10 intensity encouraged on and off. She has had this many times in the past associated with constipation. Her last bowel movement was earlier today and it was hard. She does not have nausea or vomiting. She is still passing gas. no other complaints. Related Data Home Medications Medication Instructions Recorded Confirmed aspirin 81 mg chewable tablet 81 mg PO DAILY 11/28/20 11/28/20 atorvastatin 10 mg tablet 10 mg PO HS 11/28/20 11/28/20 baclofen 20 mg tablet 20 mg PO BID 11/28/20 11/28/20 hydrocodone 7.5 mg-acetaminophen 1 tablet PO QID PRN Pain 11/28/20 11/28/20 325 mg tablet insulin aspar prot-insulin aspart 30 unit subcut QAM 11/28/20 11/28/20 100 unit/mL (70-30) subcutaneous pen (Novolog Mix 70-30FlexPen U-100) insulin aspar prt-insulin aspart 45 unit subcut QPM 11/28/20 11/28/20 100 unit/mL (70-30) subcutaneous soln (Novolog Mix 70-30 U-100 Insuln) lidocaine 5 % topical patch See Rx Instructions .Route .COMPLEX 11/28/20 11/28/20 lisinopril 40 mg tablet 40 mg PO DAILY 11/28/20 11/28/20 loperamide 2 mg capsule See Rx Instructions .Route 11/28/20 11/28/20 .COMPLEX PRN Diarrhea Allergies Allergy/AdvReac Type Severity Reaction Status Date / Time broccoli Allergy Severe Hives Verified 08/31/22 21:49 chocolate flavor Allergy Severe Anaphylactic Verified 08/31/22 21:49 Shock shrimp Allergy Severe Hives Verified 08/31/22 21:49 Sulfa (Sulfonamide Allergy Severe Anaphylactic Verified 08/31/22 21:49 Antibiotics) Shock tetracycline AdvReac Unknown Nausea and Verified 08/31/22 21:49 Vomiting corn AdvReac Gastrointestinal Verified 08/31/22 21:49 Upset EGGS AdvReac Unknown Cramping Uncoded 05/02/23 21:49 of the Muscles PMFSH Past Medical History Medical History Essential (primary) hypertension Generalized osteoarthritis Morbid obesity Pure hypercholesterolemia Type 2 diabetes mellitus Surgical History Surgical History H/O: hysterectomy Family History Family History Father Cerebrovascular accident Patient's father is Hypertension Family history of elevated blood lipids Family history of diabetes mellitus in first degree relative Family history of heart disease in male family member before age 55 Sibling Family history of malignant neoplasm of cervix Family history of malignant neoplasm of kidney Patient's sister is Patient's brother is Mother Patient's mother is , Onset Age: 88 Social History Social History Smoking status: Former smoker Second hand tobacco smoke exposure: No Smoking end date: 05/02/15 Alcohol intake: never Living arrangements: care home Gender identity (if verbalized by the patient): Female Exam Narrative: APPEARANCE: No apparent distress. Head: atraumatic. EYES: EOMI, NOSE: Atraumatic NECK: Trachea midline RESPIRATORY: No increased rate of breathing, clear to auscultation CARDIOVASCULAR: RRR, ABDOMINAL: Abdomen is obese but soft nontender no guarding rebound. MUSCULOSKELETAl: No obvious deformities NEURO: Alert. Moving 4/4 extremities SKIN:: scaly rash with patient's leg which is chronic PSYCHIATRIC: Normal affect Course Vital Signs Vital signs: Vital Signs Temperature 98 F 08/31/22 21:38 Pulse Rate 89 08/31/22 21:38 Respiratory Rate 18 08/31/22 21:38 Blood Pressure 133/62 08/31/22 21
--- NOTE | 2022-09-01 01:51 | PC.NURSE ---
soap suds enema given per dr thurman request, patient had large amount of stool
--- NOTE | 2022-09-01 01:58 | PC.NURSE ---
report called to tian waller rn
== END 2022-09-01 02:56 | disposition home or self-care (01) ==
PROVIDERS: Emergency Provider Emergency Medicine
DX: K56.41 Fecal impaction (principal); I10 Essential (primary) hypertension; E78.00 Pure hypercholesterolemia, unspecified; E11.9 Type 2 diabetes mellitus without complications; E66.01 Morbid (severe) obesity due to excess calories; Z68.42 Body mass index [BMI] 45.0-49.9, adult; M19.90 Unspecified osteoarthritis, unspecified site; Z90.710 Acquired absence of both cervix and uterus; Z79.4 Long term (current) use of insulin; Z79.82 Long term (current) use of aspirin; Z87.891 Personal history of nicotine dependence
CPT/HCPCS: 36415; 74177; 80053; 83605; 83690; 83735; 85025; 96360; 99284; A9270; J7030; Q9967